=== PATIENT | male | born 1990 | race Caucasian/White ===

== ENCOUNTER 2019-11-24 18:54 | Emergency (ER) | payer BC ==
[~2019-11-24] VITALS: Ht 180.3 cm; Wt 78.0 kg
[2019-11-24 20:39] LABS: BASOPHILS % 0.7 % (0.0-2.0); EOSINOPHILS % 1.3 % (0.0-5.0); HEMATOCRIT. 43.1 % (42.0-52.0); HEMOGLOBIN. 14.7 g/dL (14.0-18.0); LYMPHOCYTES % 27.9 % (20.0-50.0); MEAN CORPUSCULAR HEMOGLOBIN 32.6 pg (28.0-32.0); MEAN CORPUSCULAR VOLUME 95.9 fL (80.0-94.0); MONOCYTES % 12.4 % (2.0-8.0); NEUTROPHILS % 57.7 % (40.0-76.0); PLATELET 151 x1000/uL (130-400); RED CELL DISTRIBUTION WIDTH 12.9 % (11.6-14.6)
[2019-11-24 20:46] LABS: INR 2.4; PROTHROMBIN TIME 25.9 sec (9.6-11.0)
[2019-11-24 21:13] LABS: CHLORIDE 108 mEq/L (98-107)
[2019-11-24 21:20] VITALS: BP 122/65
[2019-11-24 21:20] LABS: ETHANOL BLOOD < 10 mg/dL
[2019-11-24 21:23] LABS: LDL CHOLESTEROL 103 mg/dL (5-100)
== END 2019-11-24 21:27 | disposition left against medical advice (07) ==
LOC: ER 18:54 → CANBEDREQ 23:51
DX: I63.9 Cerebral infarction, unspecified (principal); G40.909 Epilepsy, unspecified, not intractable, without status epilepticus; Z86.718 Personal history of other venous thrombosis and embolism
CPT/HCPCS: 36415; 80053; 80320; 82962; 83721; 84484; 85025; 93005; 99285; G0480